=== PATIENT | female | born 2000 | race Caucasian/White ===

== ENCOUNTER 2018-08-03 14:27 | Emergency (ER) | payer MEDICAID ==
--- NOTE | 2018-08-03 14:44 | EDPHY ---
H & P Stated Complaint: high blood sugar, needs med clearance for [facility] placement from [facility] Time Seen by Provider: 08/03/18 14:44 HPI/ROS: HPI CHIEF COMPLAINT: Medical clearance, high blood sugar HISTORY OF PRESENT ILLNESS: 18-year-old female presents emergency room from [facility] for medical clearance to go [facility] further mental health evaluation. Patient was sent here to the emergency room as her blood sugars been running slightly high in the 300s. She denies feeling ill. She states her blood sugars probably running high due to being a little bit more stress than normal. She denies suicidal homicidal ideations, denies want hurt herself or anybody else. She reports she has been taking her insulin as prescribed. Past Medical History: Insulin-dependent diabetes, depression Past Surgical History: Denies recent surgical history Social History: Denies drugs alcohol tobacco. Family History:Noncontributory ROS REVIEW OF SYSTEMS: 10 Systems were reviewed and negative with the exception of the elements mentioned in the history of present illness. Exam Constitutional triage nursing summary reviewed, vital signs reviewed, awake/ alert. Eyes normal conjunctivae and sclera, EOMI, PERRLA. HENT normal inspection, atraumatic, moist mucus membranes, no epistaxis, neck supple/ no meningismus, no raccoon eyes. Respiratory clear to auscultation bilaterally, normal breath sounds, no respiratory distress, no wheezing. Cardiovascular rate normal, regular rhythm, no murmur, no edema, distal pulses normal. Gastrointestinal soft, non-tender, no rebound, no guarding, normal bowel sounds, no distension, no pulsatile mass. Genitourinary no CVA tenderness. Musculoskeletal no midline vertebral tenderness, full range of motion, no calf swelling, no tenderness of extremities, no meningismus, good pulses, neurovascularly intact. Skin pink, warm, & dry, no rash, skin atraumatic. Neurologic awake, alert and oriented x 3, AAOx3, moves all 4 extremities equally, motor intact, sensory intact, CN II-XII intact, normal cerebellar, normal vision, normal speech. Psychiatric normal mood/affect. Heme/Lymph/Immune no lymphadenopathy. Differential Diagnosis: Includes but is not limited to in a particular order hyperglycemia, dehydration, electrolyte disturbance, DKA Medical Decision Making: Plan for this patient IV establishment gentle IV fluids, basic labs, rule out DKA. Re-evaluation: Labs reviewed blood sugar 272. No evidence of DKA. Source: Patient - Personal History LMP (Females 10-55): 15-21 Days Ago Current Tetanus/Diphtheria Vaccine: Unsure Current Tetanus Diphtheria and Acellular Pertussis (TDAP): Unsure - Medical/Surgical History Hx Asthma: Yes Hx Chronic Respiratory Disease: No Hx Diabetes: Yes Hx Cardiac Disease: No Hx Renal Disease: No Hx Cirrhosis: No Hx Alcoholism: No Hx HIV/AIDS: No Hx Splenectomy or Spleen Trauma: No - Social History Smoking Status: Never smoked Constitutional: Initial Vital Signs Temperature (C) 37.1 C 08/03/18 14:31 Heart Rate 110 H 08/03/18 14:31 Respiratory Rate 14 08/03/18 14:31 Blood Pressure 117/70 08/03/18 14:31 O2 Sat (%) 96 08/03/18 14:31 O2 Delivery Mode Room Air Allergies/Adverse Reactions: Penicillins Allergy (Verified 08/03/18 14:30) Home Medications: Medication Instructions Recorded Gabapentin 08/03/18 Lantus 08/03/18 Novolog Flexpen 08/03/18 Medical Decision Making - Data Points Laboratory Results: Laboratory Results 08/03/18 15:10 08/03/18 15:10 08/03/18 08/03/18 15:10 15:10 WBC 9.06 10^3/uL 10^3/uL (3.80-9.50) RBC 4.79 10^6/uL 10^6/uL (4.18-5.33) Hgb 14.1 g/dL g/dL (12.6-16.3) Hct 41.9 % % (38.0-47.0) MCV 87.5 fL fL (81.5-99.8) MCH 29.4 pg pg (27.9-34.1) MCHC 33.7 g/dL g/dL (32.4-36.7) RDW 13.3 % % (11.5-15.2) Plt Count 385 10^3/uL 10^3/uL (150-400) MPV 9.7 fL fL (8.7-11.7) Neut % (Auto) 64.1 % % (39.3-74.2) Lymph % (Auto) 28.0 % % (15.0-45.0) [place] % (Auto) 6.0 % % (4.5-13.0) Eos % (Auto) 0.9 % % (0.6-7.6) Baso % (Auto) 0.8 % % (0.3-1.7) Nucleat RBC Rel Count 0.0 % % (0.0-0.2) Absolute Neuts (auto) 5.81 10^3/uL 10^3/uL (1.70-6.50) Absolute Lymphs (auto) 2.54 10^3/uL 10^3/uL (1.00-3.00) Absolute Monos (auto) 0.54 10^3/uL 10^3/uL (0.30-0.80) Absolute Eos (auto) 0.08 10^3/uL 10^3/uL (0.03-0.40) Absolute Basos (auto) 0.07 10^3/uL 10^3/uL (0.02-0.10) Absolute Nucleated RBC 0.00 10^3/uL 10^3/uL (0-0.01) Immature Gran % 0.2 % % (0.0-1.1) Immature Gran # 0.02 10^3/uL 10^3/uL (0.00-0.10) Sodium 137 mEq/L mEq/L (135-145) Potassium 3.9 mEq/L mEq/L (3.5-5.2) Chloride 100 mEq/L mEq/L (97-110) Carbon Dioxide 25 mEq/l mEq/l (22-31) Anion Gap 12 mEq/L mEq/L (6-14) BUN 11 mg/dL mg/dL (7-23) Creatinine 0.6 mg/dL mg/dL (0.6-1.0) Estimated GFR > 60 Glucose 272 mg/dL H mg/dL (70-100) Calcium 9.4 mg/dL mg/dL (8.5-10.4) Medications Given: Discontinued Medications Sodium Chloride (Ns) 1,000 mls @ 0 mls/hr IV EDNOW ONE; Wide Open PRN Reason: Protocol Stop: 08/03/18 14:57 Last Admin: 08/03/18 15:18 Dose: 1,000 mls Departure - Departure Disposition: Home, Routine, Self-Care Clinical Impression: Hyperglycemia Condition: Good Instructions: Diabetic Hyperglycemia (ED) Additional Instructions: 1. Please keep a close eye on her blood sugar. 2. Return to the emergency room if it is getting high, you do not feel well. Referrals: NONE *PRIMARY CARE P,. [Primary Care Provider] - As per Instructions
[2018-08-03] MEDS ORDERED: NS 1,000 ML IV ONE (14:56)
[2018-08-03 15:17] LABS: PLATELET COUNT 385 10^3/uL (150-400)
[2018-08-03 17:21] VITALS: BP 122/89
== END 2018-08-03 17:20 | disposition home or self-care (01) ==
DX: E11.65 Type 2 diabetes mellitus with hyperglycemia (principal); F32.9 Major depressive disorder, single episode, unspecified; E86.9 Volume depletion, unspecified; Z79.4 Long term (current) use of insulin